=== PATIENT | male | born 1975 | race Caucasian/White ===

== ENCOUNTER 2018-04-06 15:18 | Emergency (ER) | payer OTHER ==
[~2018-04-06] VITALS: Ht 180.3 cm; Wt 68.0 kg
[2018-04-06] MEDS ORDERED: IV NS 0.9% 500 ML IV ONE (15:30)
[2018-04-06] MEDS ORDERED: ALBUTEROL FS 2.5 MG/3 ML VIAL.NEB CONTNEB ONE (15:30)
[2018-04-06] MEDS ORDERED: predniSONE 20 MG TABLET PO ONE (15:30)
[2018-04-06] MEDS ORDERED: ASPIRIN 325 MG TABLET PO ONE (15:30)
[2018-04-06] MEDS ORDERED: IPRATROPIUM NEB FS 0.5 MG/2.5 ML AMPUL.NEB NEB ONE (15:30)
[2018-04-06] MEDS ORDERED: ASPIRIN 325 MG TABLET ONE (15:38)
[2018-04-06] MEDS ORDERED: predniSONE 20 MG TABLET ONE (15:38)
--- NOTE | 2018-04-06 15:40 | NUR ---
R SIDED PRESSURE LIKE CHEST PAIN W/ SOB SINCE THIS AM. AAOX3, VSS. CP 09/02 BUSTER WELL. DENIES DIZZINESS, N/VD, ARM/JAW PAIN @ THIS TIME. EKG DONE. PT SEEN & EVAL'D BY DR. HUDSON. WILL CONT TO MONITOR
[2018-04-06 15:41] LABS: BASOPHILS # (AUTO) 0.1 /CMM (0.0-0.2); BASOPHILS % (AUTO) 0.9 % (0.0-2.0); EOSINOPHILS % (AUTO) 0.1 % (0.0-6.0); HEMATOCRIT 47 % (39-51); HEMOGLOBIN 15.6 g/dL (13.5-17.5); LYMPHOCYTES # (AUTO) 1.1 /CMM (0.8-4.8); LYMPHOCYTES % (AUTO) 8.1 % (20.0-44.0); MEAN CORPUSCULAR HGB CONC 33 g/dl (31.0-36.0); MEAN CORPUSCULAR VOLUME 93 fL (80-96); MONOCYTES # (AUTO) 0.8 /CMM (0.1-1.30); MONOCYTES % (AUTO) 5.9 % (2.0-12.0); NEUTROPHILS # (AUTO) 11.2 /CMM (1.8-8.9); PLATELET COUNT (AUTO) 212 /CMM (150-450); RDW COEFFICIENT OF VARIATION 12.2 (11.5-15.0); RED BLOOD CELL COUNT(AUTO) 5.06 MIL/uL (4.5-6.0); WHITE BLOOD COUNT (AUTO) 13.2 K/uL (4.3-11.0)
[2018-04-06 15:50] LABS: CALCIUM, SERUM 9.6 mg/dL (8.5-10.1); CARBON DIOXIDE 21 mmol/L (21-32); CHLORIDE 100 mmol/L (98-107); CREATININE 0.9 mg/dL (0.6-1.3); GLUCOSE 121 mg/dL (74-106); POTASSIUM 3.3 mmol/L (3.5-5.1); SODIUM SERUM 135 mmol/L (136-145); UREA NITROGEN, BLOOD 16 mg/dL (7-18)
--- NOTE | 2018-04-06 15:53 | NUR ---
MEDICATED PER ERMD ORDER. AWAITING RT FOR BREATHING TX.
[2018-04-06 15:56] LABS: TROPONIN I < 0.017 ng/mL (0.00-0.056)
[2018-04-06 16:01] LABS: ALANINE AMINOTRANSFERASE 20 U/L (12-78); ALBUMIN 4.2 g/dL (3.4-5.0); ALKALINE PHOSPHATASE 68 U/L (46-116); ASPARTATE AMINOTRANSFERASE 19 U/L (15-37); B-TYPE NATRIURETIC PEPTIDE 11 PG/ML (0-125); BILIRUBIN,DIRECT 0.2 mg/dL (0.0-0.2); BILIRUBIN,TOTAL 0.9 mg/dL (0.2-1.0); TOTAL PROTEIN, SERUM 7.2 g/dL (6.4-8.2)
[2018-04-06] MEDS ORDERED: ALBUTEROL FS 2.5 MG/3 ML VIAL.NEB ONE (16:22)
[2018-04-06] MEDS ORDERED: IPRATROPIUM NEB FS 0.5 MG/2.5 ML AMPUL.NEB ONE (16:22)
[2018-04-06] MEDS ORDERED: LIDOCAINE 2%-EPI 1:100,000 30 ML VIAL ONE (16:26)
--- NOTE | 2018-04-06 16:34 | NUR ---
PT MOVED TO 5 FOR CHEST TUBE INSERTION. PT SIGNED INFORMED CONSENT. DR. HUDSON @ .
[2018-04-06] MEDS ORDERED: MORPHINE SULFATE INJ 4 MG/ML DISP.SYRIN ONE (17:18)
[2018-04-06] MEDS ORDERED: ONDANSETRON HCL/PF 4 MG/2 ML VIAL ONE (17:23)
[2018-04-06] MEDS ORDERED: ONDANSETRON HCL/PF 4 MG/2 ML VIAL IV ONE (17:30)
[2018-04-06] MEDS ORDERED: MORPHINE SULFATE INJ 2 MG/ML DISP.SYRIN IV ONE (17:30)
[2018-04-06] MEDS ORDERED: CEFAZOLIN 1 GM in IV D5W 50 ML IV ONE (17:30)
--- NOTE | 2018-04-06 17:38 | NUR ---
CHEST TUBE PLACED ON RT UPPER CHEST BY DR. HUDSON, INTACT & NO ACUTE RESP DISTRESS OR ACTIVE BLEEDING NOTED. PT SITTING UP PLACED ON HI AMISHA NON REBREATHER, PT BUSTER WELL. VSS. PT C/O RT CHEST PAIN 01/30. MEDICATED PER ERMD ORDER. WILL CONT TO MONITOR.
[2018-04-06] MEDS ORDERED: POTASSIUM CHLORIDE 20 MEQ TAB.PRT.SR PO ONE ×2 (18:00→18:25)
--- NOTE | 2018-04-06 18:06 | NUR ---
TRANSFER INFO: [facility], [phone] DR[facility] ETA [id number]
[2018-04-06 18:12] VITALS: BP 145/80
--- NOTE | 2018-04-06 18:13 | NUR ---
PT SITTING UP, READING A COMIC BOOK. PT STABLE, RT SIDE CP 09/02, " DULL PAIN WITH MOVEMENT ". DENIES SOB, DIZZINESS, N/V @ THIS TIME. WILL CONT MONITOR.
== END 2018-04-06 19:23 | disposition short-term general hospital (02) ==
LOC: ER 15:19
DX: J93.11 Primary spontaneous pneumothorax (principal); F17.210 Nicotine dependence, cigarettes, uncomplicated
CPT/HCPCS: 32551; 36415; 71045 ×2; 80048; 80076; 83880; 84484; 85025; 85378; 87081; 93005; 94640; 96365; 96375; 99291; A4606; A6402; J0690; J2270; J2405; J3490; J7040; J7060; J7512; Z7610